=== PATIENT | female | born 1955 ===

== ENCOUNTER 2025-10-15 07:58 | Outpatient (CLI) | payer OTHER ==
[2025-10-15 08:22] LABS: Hematocrit 44.6 % (36.0-46.0); Hemoglobin 15.0 g/dL (12.2-16.2); Mean Corpuscular Hemoglobin 29.8 pg (28.0-32.0); Mean Corpuscular Volume 88.7 fL (80.0-100.0); Nucleated Red Blood Cells % 0.1 %
[2025-10-15 09:43] LABS: Alanine Aminotransferase 24 U/L (7-40); Albumin 4.1 g/dL (3.2-4.8); Anion Gap 9 (5-15); BUN/Creatinine Ratio 17.1 (10.0-20.0); Blood Urea Nitrogen 12 mg/dL (9-23); Calcium 9.3 mg/dL (8.7-10.4); Carbon Dioxide 28 mmol/L (20-31); Chloride 107 mmol/L (98-107); Cholesterol 174 mg/dL (< 200); Glucose 92 mg/dL (74-106); HDL Cholesterol 51 mg/dL (40-59); Potassium 4.1 mmol/L (3.5-5.1); Sodium 144 mmol/L (136-145); Total Protein 7.0 g/dL (5.7-8.2)
[2025-10-15 09:44] LABS: Bilirubin, Total 0.4 mg/dL (0.2-1.0)
[2025-10-15 09:55] LABS: Alkaline Phosphatase 132 U/L (46-116); Triglycerides 174 mg/dL (< 150)
== END 2025-10-15 17:00 | disposition home or self-care (01) ==
LOC: LAB 07:58
PROVIDERS: ATTEND Nurse Practitioner Family
DX: E11.9 Type 2 diabetes mellitus without complications (principal); E78.5 Hyperlipidemia, unspecified; E55.9 Vitamin D deficiency, unspecified; Z00.01 Encounter for general adult medical examination with abnormal findings
CPT/HCPCS: 36415; 80053; 80061; 82043; 82306; 83036; 84443; 85025